=== PATIENT | male | born 1945 | race Caucasian/White ===

== ENCOUNTER → 2020-06-13 11:06 | Outpatient (CLI) | payer OTHER, SELFPAY ==
[2020-06-13 12:32] LABS: Alanine Aminotransferase 29 IU/L (<50); Albumin 4.5 g/dL (3.5-5.0); Albumin Globulin Ratio 1.6 (1.0-2.8); Alkaline Phosphatase 93 U/L (38-126); Aspartate Aminotransferase 18 IU/L (17-59); BUN Creatinine Ratio 26.6 (6-22); Bilirubin Total 0.5 mg/dL (0.2-1.3); Blood Urea Nitrogen 29 mg/dL (9-20); Carbon Dioxide 24 mmol/L (22-32); Chloride 105 mmol/L (98-107); Estimated Glomerular Filt Rate > 60.0 mL/min (>60); Globulin 2.8 g/dL (1.7-4.1); Glucose 125 mg/dL (80-110); HEMOLYSIS < 15 (0-50); Sodium 140 mmol/L (137-145); Total Protein 7.3 g/dL (6.3-8.2)
[2020-06-13 12:45] LABS: Free T4, Direct Thyroxine 1.07 ng/dL (0.78-2.19)
[2020-06-13 12:59] LABS: Thyroid Stimulating Hormone 1.07 uIU/mL (0.47-4.68)
[2020-06-14 05:10] LABS: Valproic Acid (Depakene) Total 39 ug/mL (50-100)
== END ==
PROVIDERS: Referring Provider Psychiatry & Neurology Psychiatry; Visit Provider Psychiatry & Neurology Psychiatry
DX: F33.2 Major depressive disorder, recurrent severe without psychotic features (principal); F60.9 Personality disorder, unspecified
CPT/HCPCS: 36415; 80053; 80164; 84439; 84443; 90834

== ENCOUNTER → 2020-07-21 09:47 | Outpatient (CLI) | payer OTHER, SELFPAY ==
[2020-07-22 05:10] LABS: Valproic Acid (Depakene) Total 36 ug/mL (50-100)
== END ==
PROVIDERS: Referring Provider Psychiatry & Neurology Psychiatry; Visit Provider Psychiatry & Neurology Psychiatry
DX: F33.2 Major depressive disorder, recurrent severe without psychotic features (principal); F60.9 Personality disorder, unspecified
CPT/HCPCS: 36415; 80164; 90837

== ENCOUNTER → 2020-09-30 12:14 | Outpatient (CLI) | payer OTHER, SELFPAY ==
[2020-09-30 13:52] LABS: Alanine Aminotransferase 45 IU/L (<50); Albumin Globulin Ratio 1.5 (1.0-2.8); Alkaline Phosphatase 65 U/L (38-126); Aspartate Aminotransferase 38 IU/L (17-59); Bilirubin Total 0.5 mg/dL (0.2-1.3); Bilirubin Unconjugated 0.3 mg/dL (0.0-1.1); Globulin 2.6 g/dL (1.7-4.1); HEMOLYSIS < 15 (0-50); Total Protein 6.6 g/dL (6.3-8.2)
[2020-10-01 03:36] LABS: Valproic Acid (Depakene) Total 64 ug/mL (50-100)
== END ==
PROVIDERS: PCP Nurse Practitioner Primary Care; Referring Provider Psychiatry & Neurology Psychiatry; Visit Provider Psychiatry & Neurology Psychiatry
DX: F33.2 Major depressive disorder, recurrent severe without psychotic features (principal); F60.9 Personality disorder, unspecified
CPT/HCPCS: 36415; 80076; 80164; 99214